=== PATIENT | male | born 1980 | race Two or more races ===

== ENCOUNTER 2025-05-22 19:03 | Emergency (ER) | payer MEDICAID, SELFPAY ==
[2025-05-22 19:07] VITALS: BMI 21.7
[2025-05-22 19:22] VITALS: BP 126/81; PULSE 97; RESP 18; TEMP 37.2; O2SAT 97
--- NOTE | 2025-05-22 19:41 | XR_ITS ---
Examination: CT brain head without contrast. 2-D sagittal coronal reconstructions Date and time of exam:May 22, 20252007 hours INDICATIONS: Onset headache dizziness today. CTDI: vol (mGy):46.1. DLP: (mGycm):884. Technique: Multiple CT axial sections of the brain have been obtained, 5 mm slice thickness. Contrast has not been administered. 2-D sagittal, coronal reconstructions have been obtained Low dose protocols were performed. One or more of the following dose reduction techniques were used; automated exposure control, adjustment of the mA and/or KV according to patient size, use of iterative reconstruction technique. Findings: No significant ventricular enlargement. Intra-axial or extra-axial hemorrhage density is not seen. No mass effect or midline shift Basal cisterns are not remarkable. Fourth ventricle is midline. Cranial vault intact. Impression: Negative for acute hemorrhage, mass effect or midline shift
[2025-05-22 20:05] LABS: Basophils # (Auto) 0.0 Thou/mm3 (0.0-0.2); Basophils % (Auto) 0 % (0-2.5); Eosinophils # (Auto) 0.1 Thou/mm3 (0.0-0.5); Eosinophils % (Auto) 1 % (0-10); Hematocrit 43.4 % (41.0-53.0); Hemoglobin 15.0 g/dL (13.5-16.0); Immature Granulocytes Auto 0.03 Thou/mm3 (0.00-0.00); Lymphocytes # (Auto) 3.4 Thou/mm3 (1.0-4.8); Lymphocytes % (Auto) 31 % (10-50); Mean Corpuscular HGB Conc 34.6 g/dl (31.0-37.0); Mean Corpuscular Hemoglobin 29.6 pg (25.0-35.0); Mean Corpuscular Volume 86 fL (80-100); Monocytes # (Auto) 1.0 Thou/mm3 (0.0-0.8); Monocytes % (Auto) 9 % (0-12); Neutrophils # (Auto) 6.5 Thou/mm3 (1.8-7.7); Neutrophils % (Auto) 59 % (37-80); Nucleated Red Blood Cell # 0.00 Thou/mm3 (0.00-0.00); Nucleated Red Blood Cell % 0 /100 WBC (0); Platelet Count 173 Thou/mm3 (140-440); RDW Standard Deviation 42.0 fL (35.1-43.9); Red Blood Count 5.06 Miln/mm3 (4.50-5.90); White Blood Count 11.1 Thou/mm3 (3.8-10.6)
[2025-05-22 20:24] LABS: Alanine Aminotransferase 27 U/L (10-49); Albumin, Serum 4.5 gm/dL (3.5-5.0); Albumin/Globulin Ratio 1.5 (1.2-2.2); Alkaline Phosphatase 227 U/L (46-116); Anion Gap 7 (7-16); Aspartate Amino Transferase 60 U/L (0-34); BUN/Creatinine Ratio 11 Ratio (12-20); Bilirubin,Total 1.3 mg/dL (0.3-1.2); Blood Urea Nitrogen 11 mg/dL (9-23); Calcium 9.7 mg/dL (8.3-10.6); Calcium (Corrected) 9.7 mg/dL (8.5-10.1); Carbon Dioxide 27.1 mMol/L (20.0-31.0); Chloride 101 mMol/L (98-107); Creatinine (Component) 1.0 mg/dL (0.6-1.3); Estimated Creatinine Clearance 81.6 mL/min (>60); Globulin 3.0 gm/dL (2.3-3.5); Glucose 113 mg/dL (74-106); Osmolality,Calculated 270 (275-295); Potassium 4.0 mMol/L (3.4-5.1); Sodium 135 mMol/L (136-145); Total Protein 7.5 gm/dL (5.7-8.2); eGFR > 60 See Note
[2025-05-22] MEDS: ONDANSETRON INJ 2 MG/ML INJ 2 ML 4 MG IVP (20:35)
[2025-05-22] MEDS: SODIUM CHLORIDE 0.9% 1000 ML 1,000 ML 999 ML IV (20:37)
[2025-05-22] MEDS: KETOROLAC INJ 30 MG/ML VIAL IVP (21:07)
--- NOTE | 2025-05-22 21:15 | EDNOTE_ITS ---
ED Headache RME/HPI General Chief Complaint: Headache Stated Complaint: PAIN TO BACK OF HEAD Time Seen by Provider: 05/22/25 19:32 Arrival date/time: 05/22/25 19:03 This is a case of a 45-year-old male with no medical history came in in the emergency room due to headache throbbing in character mostly on the occipital area nonradiating for 3 days associated with dizziness nausea and vomiting denies any injury or trauma denies any numbness weakness tingling sensation denies any blurring of vision Limitations: no limitations Related Data Previous Rx's ?Medication ?Instructions ?Recorded ybkkqfsoyg-nezwywq-qmadnsnt 50 1 cap PO Q6H PRN pain # 15 caps 05/22/25 mg-325 mg-40 mg capsule meclizine 25 mg tablet 25 mg PO TID PRN dizziness # 14 tabs 05/22/25 ondansetron 4 mg disintegrating 4 mg PO Q8H PRN nausea and 05/22/25 tablet vomiting #14 tabs Allergies Allergy/AdvReac Type Severity Reaction Status Date / Time No Known Allergies Allergy Verified 05/22/25 19:16 Review of Systems Constitutional Constitutional: Reports system reviewed and no additional complaints, except as documented, Reports as per HPI, Denies chills, Denies fatigue, Denies fever(s), Denies frequent falls, Reports headache(s) and Denies weakness Eyes Eyes: Reports system reviewed and no additional complaints, except as documented, Reports as per HPI, Denies blurry vision, Denies change in vision, Denies decreased night vision, Denies exophthalmos, Denies floaters and Denies loss of vision ENT Ears, Nose, Mouth, and Throat: Reports system reviewed and no additional complaints, except as documented, Reports as per HPI, Denies abnormal hearing, Denies disequilibrium, Reports dizziness, Reports headache(s) and Reports vertigo Cardiovascular Cardiovascular: Reports system reviewed and no additional complaints, except as documented, Reports as per HPI and Denies syncope Respiratory Respiratory: Reports system reviewed and no additional complaints, except as documented and Reports as per HPI Gastrointestinal Gastrointestinal: Reports system reviewed and no additional complaints, except as documented, Reports as per HPI, Denies abdominal pain, Reports nausea and Reports vomiting Genitourinary Genitourinary: Reports system reviewed and no additional complaints, except as documented and Reports as per HPI Musculoskeletal Musculoskeletal: Reports system reviewed and no additional complaints, except as documented, Reports as per HPI, Denies abnormal gait, Denies numbness and Denies tingling Neurologic Neurologic: Reports system reviewed and no additional complaints, except as documented, Reports as per HPI, Denies abnormal gait, Denies abnormal hearing, Denies abnormal movements, Denies abnormal speech, Denies behavioral changes, Denies burning sensations, Denies confusion, Denies convulsions, Denies disequilibrium, Reports dizziness, Denies localized weakness, Denies frequent falls, Reports headache(s), Denies lack of coordination, Denies loss of vision, Denies memory loss, Denies numbness, Denies other visual disturbances, Denies paresthesias, Denies radicular pain, Denies restless legs, Denies seizure-like activity, Denies sensory deficit, Denies syncope, Denies tingling, Denies tremor(s), Reports vertigo and Denies weakness Psychiatric Psychiatric: Denies behavioral changes, Denies confusion and Denies memory loss Endocrine Endocrine: Denies fatigue Past Medical History Past Medical History NEUROLOGIC: Positive Neurological Disorders (headaches) CARDIAC: Negative Congestive Heart Failure RESPIRATORY: Negative Chronic Obstructive Pulmonary Disease (COPD) GENITOURINARY: Negative Renal Disease ENDOCRINE: Negative Diabetes Mellitus Type 1 or Diabetes Mellitus Type 2 Social History SMOKING STATUS: Current every day smoker ED Exam General Limitations: Present no limitations General appearance: Present alert, in no apparent distress and other (Patient is awake alert oriented not in distress not toxic looking) Head Head exam: Present atraumatic, normocephalic and normal inspection Eye Eye exam: Present normal appearance, PERRL, EOMI and other (no hyphema no pappiledema perrl eomintact conjunciva normal) ENT ENT exam: Present normal exam, normal oropharynx, mucous membranes moist and other (Normal HEENT exam) Neck Neck exam: Present normal inspection, full ROM, trachea midline and other (Negative for meningeal sign); Absent tenderness, meningismus, lymphadenopathy or thyromegaly Chest Chest inspection: Present normal inspection and symmetric chest wall rise Respiratory Respiratory exam: Present normal lung sounds bilaterally; Absent respiratory distress, wheezes, stridor, accessory muscle use or prolonged expiratory phase Cardiovascular Cardiovascular exam: Present regular rate, normal rhythm and normal heart sounds; Absent bradycardia, tachycardia, irregular rhythm, systolic murmur or diastolic murmur Abdominal Exam Abdominal exam: Present soft and normal bowel sounds; Absent distention, tenderness, rigidity, diminished bowel sounds, hyperactive bowel sounds or hypoactive bowel sounds Extremities Exam Extremities exam: Present normal inspection and full ROM Back Exam Back exam: Present normal inspection and full ROM Neurological Exam Neurological exam: Present alert, oriented X3, CN II-XII intact, normal gait, reflexes normal and other (Awake alert oriented x 4 no focal deficit GCS 15/15 steady gait memory intact no facial droop no slurring of speech CN II to XII is normal motor 5/5 in all extremities reflex +2 in all extremities sensitive +2 in all extremities negative Babinski); Absent motor sensory deficit Psychiatric Psychiatric exam: Present normal affect and normal mood Skin Skin exam: Present warm, dry, intact and normal color Course Quality Measures none Orders Category Date Time Status Insert IV NOW Care 05/22/25 20:[address] head/brain wo con Stat Exams 05/22/25 19:41 Completed CBC Stat Lab 05/22/25 19:56 Completed CMP [Comprehensive Metabolic Panel] Stat Lab 05/22/25 19:56 Completed DiphenhydrAMINE INJ [Benadryl Inj] Med 05/22/25 20:18 Discontinued 25 mg IVP X1 ONE Ketorolac Inj [Toradol Inj] Med 05/22/25 20:57 Discontinued 30 mg IVP X1 ONE Ondansetron Inj [Zofran Inj] Med 05/22/25 20:18 Discontinued 4 mg IVP X1 ONE Sodium Chloride 0.9% 1000 ml [Ns] 1,000 ml Med 05/22/25 20:18 Active IV 999 mls/hr Vital Signs Vital signs: Vital Signs Temperature 98.9 F 05/22/25 19:22 Pulse Rate 97 05/22/25 19:22 Respiratory Rate 18 05/22/25 19:22 Blood Pressure 126/81 05/22/25 19:22 Pulse Oximetry (%) 97 05/22/25 19:22 Oxygen Delivery Method Room Air 05/22/25 19:22 Patient is afebrile not tachycardic not tachypneic BP stable not hypoxic oxygen saturation 97% in room air Headache MDM Narrative MDM Narrative:: This is a case of a 45-year-old male with no medical history came in in the emergency room due to headache throbbing in character mostly on the occipital area nonradiating for 3 days associated with dizziness nausea and vomiting denies any injury or trauma denies any numbness weakness tingling sensation denies any blurring of vision physical examination patient is awake alert oriented not in distress nontoxic looking well-hydrated well-nourished eye exam is normal no pappiledema neck exam negative for meningeal sign abdominal exam is normal no guarding no rebound no rigidity no tenderness patient neurological exam is normal no focal deficit GCS 15/15 steady gait memory intact no facial droop no slurring of speech motor or sensory reflex were normal negative Babinski patient blood test showed no leukocytosis no anemia kidney and liver function is normal no electrolyte imbalance patient CT scan is also normal no intracranial bleeding no mass based on my physical examination and history patient symptoms or headache is possibly due to tension headache versus migraine headache patient was given a bolus of normal saline for hydration and Toradol for pain Zofran for vomiting and Benadryl patient was reassessed after 1 hour patient condition markedly improved headache is resolved at this point patient w as advised to follow-up with PCP to be in referred to neurologist for headache and for dizziness at the time of exam there is no signs and symptoms of sepsis nor meningitis no signs and symptoms of CVA nor TIA patient condition markedly improved and will discharge here in the emergency room and follow-up with PCP in 2 days for reevaluation he was also advised for worsening symptoms return to the emergency room immediately patient was prescribed Fioricet for headaches Zofran for nausea vomiting and meclizine for dizziness Patient was discharged with comfortable condition walking with stable gait. Patient verbalized no further complains explained diagnosis and answered patient question. Patient is comfortable with the proposed management plan including the need to follow up with his/her primary care physician and any specialist if applicable Discussed patient for any urgent condition or worsening sx, He/She needed to go to emergency room immediately or call 911. Patient acknowledge the responsibility to follow up as instructed and to monitor her/his symptoms. For any persistence of the symptoms for more than 3-5 days return precaution advised. Discussed the result of the test and was given printed discharge instruction Patient data External records reviewed:: [facility] previous records Clinical information provided by:: patient Social determinants that could affect healthcare access:: none Patient has the following chronic illnesses:: None How is presenting disease/condition affected by chronic disease/condition?: no chronic disease (None) Evaluation data The following diagnostics were reviewed and interpreted by me:: lab results and radiology exam(s) Lab and/or radiology exams considered but not ordered:: Reviewed Interpretation Summary: Reviewed Medications / Prescriptions Medications or Prescriptions considered but not ordered:: Given Medication administrations:: Medication Administration History Sodium Chloride (Ns) 1,000 mls @ 999 mls/hr IV .Q1H1M ONE Stop: 05/22/25 21:18 Last Admin: 05/22/25 20:37 Dose: 999 mls/hr Documented By: BD Discontinued Medications Diphenhydramine HCl (Diphenhydramine Inj 50 Mg/Ml Vial) 25 mg IVP X1 ONE Stop: 05/22/25 20:19 Last Admin: 05/22/25 20:35 Dose: 25 mg Documented By: BD Ketorolac Tromethamine (Ketorolac Inj 30 Mg/Ml Vial) 30 mg IVP X1 ONE Stop: 05/22/25 20:58 Last Admin: 05/22/25 21:07 Dose: 30 mg Documented By: DOLORES Ondansetron HCl (Ondansetron Inj 2 Mg/Ml Inj 2 Ml) 4 mg IVP X1 ONE; Protocol Stop: 05/22/25 20:19 Last Admin: 05/22/25 20:35 Dose: 4 mg Documented By: BD Given Consultations Consultation(s) initiated? (list below): No Diagnosis Differential diagnosis headache: migraine, tension headache, headache and sinusitis Most likely diagnosis given after review of the tests above:: Headache Admission Indicated Admission indicated?: not indicated Explain why admission is indicated or not indicated:: Not indicated Admission Request Was there a request for admission?: No Admission Attestation Admission request attestation: Not indicated Disposition Plan Disposition Plan: Discharge Discharge Attestation Discharge Attestation: The patient and all family members were given an opportunity to ask questions and understood the discharge instructions. Discharge instructions specifically effects, indications for sooner follow up or return to the emergency department, and the expected course of current diagnosis. Patient condition: Stable Discharge Plan Plan Patient Disposition: HOME (Self Care) Patient condition on transfer: Stable Prescriptions/Referrals Prescriptions/Med Rec: New tvndevwdqh-suwyosd-semtsami 50-325-40 mg capsule 1 cap PO Q6H PRN (Reason: pain) Qty: 15 0RF ondansetron 4 mg tablet,disintegrating 4 mg PO Q8H PRN (Reason: nausea and vomiting) Qty: 14 0RF meclizine 25 mg tablet 25 mg PO TID PRN (Reason: dizziness) Qty: 14 0RF Referrals: No Primary/Family,Physician [Primary Care Provider] - In 1 week Problem List Clinical Impression: Headache, Dizziness Patient/Caregiver Discharge Instructions Education Materials: Self-Care for Headaches, ED Dizziness, Uncertain Cause Additional Instructions: Follow-up with your primary care physician in 2 days for reevaluation and to be referred to neurologist for further evaluation and treatment of headache and dizziness worsening symptoms recurrence of the symptoms persistence of the symptoms or any emergent concern return to the emergency room immediately or call 911 keep hydrated Pedialyte Gatorade for hydration take your medication as directed Print Language: Ukrainian Stand Alone Forms: Leta Award Info., Patient Portal Info Letter PA/WASHCLOTH FOLDER Supervising Physician PA/WASHCLOTH FOLDER Supervising Physician: DR COLBERT
[2025-05-22 21:39] VITALS: BP 113/76; PULSE 73; RESP 18; O2SAT 99
== END 2025-05-22 21:40 | disposition home or self-care (01) ==
PROVIDERS: Nurse Practitioner Family; Emergency Provider Emergency Medicine
DX: R51.9 Headache, unspecified (principal); R42 Dizziness and giddiness
CPT/HCPCS: 36415; 70450; 80053; 85025; 96361; 96374; 96375; 99283; J1200; J1885; J2405; J7030